=== PATIENT | male | born 1990 | race African-American/Black ===

== ENCOUNTER 2024-12-11 07:52 | Emergency (ER) | payer OTHER ==
[~2024-12-11] VITALS: Ht 177.8 cm; Wt 76.4 kg
[2024-12-11 07:57] VITALS: TEMP 97.9
[2024-12-11] MEDS ORDERED: IBUP-1492 PO (08:00)
[2024-12-11 08:37] LABS: APPEARANCE,URINE CLEAR (CLEAR); GLUCOSE, URINE (UA) NEGATIVE (NEGATIVE); LEUKOCYTE ESTERASE ,URINE NEGATIVE (NEGATIVE); NITRATE,URINE NEGATIVE (NEGATIVE); OCCULT BLOOD,URINE MODERATE (NEGATIVE); SPECIFIC GRAVITIY, URINE 1.025 (1.003-1.030)
[2024-12-11 08:45] LABS: CALCIUM OXALATE CRYSTALS,UR Rare /LPF (None Seen)
[2024-12-11] MEDS: KETOROLAC TROMETHAMINE 60 MG/2 ML VIAL IM ONE (10:27)
[2024-12-11] MEDS ORDERED: TAMS0.4C94 PO (11:04)
[2024-12-11] MEDS ORDERED: HYDR-4062 PO (11:04)
[2024-12-11] MEDS ORDERED: IBUP-1554 PO (11:04)
[2024-12-11 11:18] VITALS: BP 150/90; PULSE 59; RESP 19; O2SAT 99
== END 2024-12-11 11:25 | disposition home or self-care (01) ==
LOC: EMS 08:00
DX: N20.0 Calculus of kidney (principal); Z87.442 Personal history of urinary calculi; Z90.89 Acquired absence of other organs; Z79.899 Other long term (current) drug therapy
CPT/HCPCS: 99283; 81001; 96372; J1885